=== PATIENT | female | born 1975 | race Caucasian/White ===

== ENCOUNTER → 2016-07-08 | Outpatient (CLI) | payer MEDICAID | LOC: LABWHC1 07:06 | PROVIDERS: ATTEND Physician Assistant Medical | DX: L70.8 Other acne (principal) | CPT/HCPCS: 36415; 84132 ==

== ENCOUNTER → 2016-09-16 | Outpatient (CLI) | payer MEDICAID ==
[2016-09-16 18:53] LABS: Blood Urea Nitrogen 12 mg/dL (7-17); Non-African American GFR(MDRD) >60 (>60 ml/min/1.73 sqM)
--- NOTE | 2016-09-16 20:33 | CT ---
EXAMINATION TYPE: CT urogram wo/w con DATE OF EXAM: 09/16/2016 COMPARISON: NONE HISTORY: Frequent UTI x 1+ years. CT DLP: 1597.00 mGycm Automated exposure control for dose reduction was used. CONTRAST: Performed without and with IV Contrast, patient injected with 100 mL of Omnipaque 300. FINDINGS: Lung bases are clear. There is no pleural effusion. Heart size is normal. Liver spleen pancreas gallbladder appear normal. Bile ducts are not dilated. There is no adrenal mass . There is normal contrast opacification of the kidneys. Kidneys of normal size. I see no atrophy. Th ere is no evidence of a calculus. The right renal pelvis is larger than the left and this is probably normal variation. There is no retroperitoneal adenopathy. There is no ascites. Bladder distends smoo thly. There is no sign of a pelvic mass. I see no intestinal wall thickening. There are no dilated lo ops. I see no bony destructive process. There is no sign of pelvic lymphadenopathy. IMPRESSION: NEGATIVE CT SCAN OF THE ABDOMEN AND PELVIS. NO EVIDENCE OF RENAL STONE OR OBSTRUCTION. NO EVIDENCE OF A RENAL MASS.
== END | disposition home or self-care (01) ==
LOC: RADCTMAIN 17:58
PROVIDERS: ATTEND Urology
DX: N39.0 Urinary tract infection, site not specified (principal); Z88.0 Allergy status to penicillin
CPT/HCPCS: 82565; 84520; 74178; 36415; 74400; Q9967

== ENCOUNTER → 2016-11-24 | Outpatient (CLI) | payer MEDICAID ==
--- NOTE | 2016-11-25 10:11 | MM ---
Reason for exam: screening (asymptomatic). Last mammogram was performed 1 year ago. History: Family history of breast cancer in mother at age 48. Retro-pectoral saline implants in both breasts, 2004. Taking hormonal contraceptives for 22 years beginning at age 14. Physical Findings: A clinical breast exam by your physician is recommended on an annual basis and results should be correlated with mammographic findings. MG Screening Mammo Implant/CAD Bilateral CC and MLO view(s) were taken. Prior study comparison: November 18, 2015, bilateral MG screening mammo implant/CAD. November 07, 2011, CAD bilateral diagnostic mammogram. The breast tissue is extremely dense which could obscure a lesion on mammography. There are three asymmetries in the left breast, medial 9.4mm, central 4.3mm and lateral 7.8mm. ASSESSMENT: Incomplete: need additional imaging evaluation, BI-RAD 0 RECOMMENDATION: Special view mammogram of the left breast. If lesion persists on supplemental views, image directed ultrasound is recommended. [facility] will attempt to contact patient to return for supplemental views and ultrasound if indicated.
== END | disposition home or self-care (01) ==
LOC: RADMAMWWP 15:37
PROVIDERS: ATTEND Family Medicine
DX: Z12.31 Encounter for screening mammogram for malignant neoplasm of breast (principal)

== ENCOUNTER → 2017-01-07 | Outpatient (CLI) | payer MEDICAID | END | disposition home or self-care (01) | LOC: LABWHC1 09:26 | PROVIDERS: ATTEND Physician Assistant Medical | DX: L70.8 Other acne (principal) | CPT/HCPCS: 36415; 84132 ==

== ENCOUNTER → 2017-03-03 | Outpatient (CLI) | payer MEDICAID ==
--- NOTE | 2017-03-06 08:38 | MM ---
Reason for exam: follow-up at short interval from prior study. Last mammogram was performed 3 months ago. History: Family history of breast cancer in mother at age 48. Retro-pectoral saline implants in both breasts, 2003. Taking hormonal contraceptives for 22 years beginning at age 14. Physical Findings: Nurse did not find any significant physical abnormalities on exam. MG Work Up Vanessa W/Imp W/CAD L ML, ID, and spot compression CC view(s) were taken of the left breast. Prior study comparison: November 24, 2016, bilateral MG screening mammo implant/CAD. November 18, 2015, bilateral MG screening mammo implant/CAD. The breast tissue is extremely dense which could obscure a lesion on mammography. The questioned asymmetries do not clearly persist but could be obscured by the very dense tissues. Ultrasound is recommended. These results were verbally communicated with the patient and result sheet given to the patient on 03/03/17. ASSESSMENT: Incomplete: need additional imaging evaluation, BI-RAD 0 RECOMMENDATION: Ultrasound of the left breast.
--- NOTE | 2017-03-06 08:39 | USB ---
Reason for exam: additional evaluation requested from abnormal screening. History: Family history of breast cancer in mother at age 48. Retro-pectoral saline implants in both breasts, 2004. Taking hormonal contraceptives for 22 years beginning at age 14. US Breast Workup LT Left breast ultrasound includes all four quadrants, the retroareolar region and axilla. Finding demonstrates a 4 x 2 x 4mm oval, cystic lesion at 4 o'clock. These results were verbally communicated with the patient and result sheet given to the patient on 03/03/17. ASSESSMENT: Benign, BI-RAD 2 RECOMMENDATION: Return to routine screening mammogram schedule for both breasts.
== END | disposition home or self-care (01) ==
LOC: RADMAMWWP 10:03
PROVIDERS: ATTEND Family Medicine
DX: R92.8 Other abnormal and inconclusive findings on diagnostic imaging of breast (principal)
CPT/HCPCS: 76641; G0204

== ENCOUNTER → 2018-05-26 | Outpatient (CLI) | payer MEDICAID | LOC: LABWHC1 08:14 | PROVIDERS: ATTEND Physician Assistant Medical | DX: L70.8 Other acne (principal) | CPT/HCPCS: 36415; 84132 ==